=== PATIENT | female | born 1995 | race Caucasian/White ===

== ENCOUNTER 2023-07-28 16:03 | Emergency (ER) | payer MEDICAID ==
[2023-07-28] MEDS ORDERED: Sodium Chloride 0.9% 10 ML Syringe FLUSH PRN (19:26)
[2023-07-28] MEDS ORDERED: Sodium Chloride 0.9% 1,000 ML IV ONE ×2 (19:26→20:35)
[2023-07-28] MEDS ORDERED: Promethazine 25 MG/ML SDV IM ONE (19:36)
[2023-07-28 20:04] LABS: HEMATOCRIT 34.8 % (37.0-47.0); LYMPHOCYTES PERCENT AUTO 6.3 % (20.5-50.1); MEAN CORPUSCULAR HEMOGLOBIN 29.1 pg (27.0-34.0); MEAN CORPUSCULAR HGB CONC 34.5 g/dL (33.0-35.0); MEAN CORPUSCULAR VOLUME 84.3 fL (80-100); MONOCYTES PERCENT AUTO 2.6 % (2-8); NEUTROPHILS PERCENT AUTO 91.1 % (42.2-75.2); PLATELET COUNT,PLT 189 10^3/uL (150-450); RED BLOOD CELL COUNT 4.13 10^6/uL (4.2-5.4); WHITE BLOOD CELL COUNT,WBC 5.7 10^3/uL (5.0-10.0)
[2023-07-28 20:09] LABS: APPEARANCE,URINE SLIGHTLY CLOUDY (CLEAR); BILIRUBIN,URINE NEGATIVE (NEGATIVE); COLOR,URINE YELLOW (YELLOW); GLUCOSE,URINE NEGATIVE (NEGATIVE); KETONES,URINE >=160 (NEGATIVE); LEUKOCYTE ESTERASE,URINE NEGATIVE (NEGATIVE); NITRITE,URINE NEGATIVE (NEGATIVE); OCCULT BLOOD,URINE NEGATIVE (NEGATIVE); PH,URINE 6.5 (5.0-9.0); PROTEIN,URINE 100 (NEGATIVE)
[2023-07-28 20:24] LABS: RBC,URINE 0-5 /HPF (0-5)
[2023-07-28 20:25] LABS: BACTERIA,URINE MANY /HPF (0-FEW/HPF); EPITHELIAL CELLS,URINE MANY /HPF (NOT SEEN)
[2023-07-28 20:26] LABS: ALBUMIN 3.3 g/dL (3.4-5.0); ANION GAP 17.4 mEq/L (7-13); BILIRUBIN TOTAL 0.7 mg/dL (0.2-1.0); BUN/CREATININE RATIO 11.1 (No establ ref range); CALCIUM 8.4 mg/dL (8.5-10.1); CREATININE 0.72 mg/dL (0.55-1.02); EST CRCL DRUG DOSING (CG) 93.65 mL/min; MAGNESIUM 1.7 mg/dL (1.8-2.4); POTASSIUM,K 3.4 mmol/L (3.5-5.1); PROTEIN TOTAL,TP 7.2 g/dL (6.4-8.2)
[2023-07-28 20:28] LABS: A/G RATIO 0.85
[2023-07-28] MEDS ORDERED: Metoclopramide 10 MG/2 ML SDV IVPUSH ONE (20:35)
== END 2023-07-28 21:45 | disposition home or self-care (01) ==
LOC: DL.ED 16:03
DX: O21.9 Vomiting of pregnancy, unspecified (principal); Z91.040 Latex allergy status; Z88.0 Allergy status to penicillin; Z3A.12 12 weeks gestation of pregnancy
CPT/HCPCS: 36415; 80053; 81001; 83735; 85025; 96361; 96372; 96374; 99283; 99284-25; J2550; J2765; J3490; J7030

== ENCOUNTER 2024-11-17 06:09 | Day surgery (SDC) | payer MEDICAID ==
[2024-11-17] MEDS ORDERED: Midazolam 1 MG/ML 2 ML SDV IV ONE (06:18)
[2024-11-17] MEDS ORDERED: fentaNYL 100 MCG/2 ML SDV IV ONE (06:18)
[2024-11-17] MEDS ORDERED: Midazolam 1 MG/ML 2 ML SDV ONE (06:18)
[2024-11-17] MEDS ORDERED: fentaNYL 100 MCG/2 ML SDV ONE (06:18)
[2024-11-17] MEDS: Dextrose 5%-0.45% NaCl 1,000 ML IV SCH (06:30)
[2024-11-17] MEDS: fentaNYL 100 MCG/2 ML SDV IV ONE ×4 (06:54→07:09)
[2024-11-17] MEDS: Midazolam 1 MG/ML 2 ML SDV IV ONE ×6 (06:55→07:03)
== END 2024-11-17 08:53 | disposition home or self-care (01) ==
LOC: DL.ENDO 06:09
PROVIDERS: ATTEND Internal Medicine Gastroenterology
DX: K51.211 Ulcerative (chronic) proctitis with rectal bleeding (principal)
CPT/HCPCS: 45380; 81025; J2250; J3010